=== PATIENT | female | born 1955 | race Caucasian/White ===

== ENCOUNTER 2016-03-15 13:26 | Emergency (ER) | payer OTHER ==
[~2016-03-15] VITALS: Ht 165.1 cm; Wt 62.6 kg
[~2016-03-15 13:26] MED LIST: BACL10TA PO; GABA-532 PO; IBUP-1482 PO; LIDOCAINE OINTMENT; PREG75CA PO; VOLTAREN 1%
[2016-03-15 13:58] VITALS: BP 123/101
== END 2016-03-15 16:12 | disposition home or self-care (01) ==
LOC: ER 13:29
DX: T81.4XXA Infection following a procedure, initial encounter (principal); Y92.89 Other specified places as the place of occurrence of the external cause; Y93.89 Activity, other specified; Y99.8 Other external cause status
CPT/HCPCS: 73610; 99284; A4606; Z7610

== ENCOUNTER 2019-07-18 04:30 | Inpatient (IN) | payer OTHER ==
[~2019-07-18] VITALS: Ht 167.6 cm; Wt 68.0 kg
[~2019-07-18 04:30] MED LIST changes: -IBUP-1482 PO; +IBUP-1958 PO
--- NOTE | 2019-07-18 04:40 | NUR ---
PT AAOX4. BIBRA C/O SOB SINCE THE MORNING. PT STATES SHE HAS SEASONAL ALLERGIES. SAT 91% RESTAURANT EXPEDITOR, GIVEN 2 TREATMENTS OF ALBUTEROL IN THE FIELD, SAT 96% NOW ON RA. PLACED ON MONITOR AND PULSE OX. BILATERAL WHEEZING UPON AUSCULTATION.
--- NOTE | 2019-07-18 04:45 | NUR ---
RT AT BEDSIDE FOR ABG
--- NOTE | 2019-07-18 04:49 | NUR ---
XRAY AT BEDSIDE
[2019-07-18 05:04] LABS: ABG BASE EXCESS -5.6 mmol/L; ABG OXYGEN SATURATION 91.1 % (92.0-98.5); ABG PCO2 38.9 mmHg (35.0-45.0); ABG PH 7.326 (7.350-7.450); ABG PO2 70.6 mmHg (75.0-100.0); AaDO2 32.5 mmHg; COHb 0.3 % (0.5-1.5); MetHb 0.6 % (0.0-1.5); O2Hb 90.3 % (94.0-97.0); SITE, ABG Left Radial; VENT MODE, BG ROOM AIR
[2019-07-18] MEDS ORDERED: FUROSEMIDE 20 MG/2 ML VIAL ONE (05:24)
[2019-07-18] MEDS ORDERED: FUROSEMIDE 20 MG/2 ML VIAL IV ONE (05:30)
[2019-07-18] MEDS ORDERED: ALBUTEROL FS 2.5 MG/3 ML VIAL.NEB NEB ONE ×3 (05:30→09:00)
[2019-07-18] MEDS ORDERED: IPRATROPIUM NEB FS 0.5 MG/2.5 ML AMPUL.NEB NEB ONE ×2 (05:30→07:30)
--- NOTE | 2019-07-18 05:32 | NUR ---
BLOOD COLLECTED AND SENT WITH RESIDENT SERVICES DIRECTOR.
--- NOTE | 2019-07-18 05:34 | NUR ---
Marcella butcher in ED - 07/18/19 at 0605 by EDMOND PT VERY ANXIOUS, REFUSING THE BREATHING TREATMENT.
--- NOTE | 2019-07-18 05:36 | NUR ---
RT AT BEDSIDE FOR BREATHING TREATMENT
[2019-07-18 05:37] LABS: BASOPHILS % (AUTO) 0.4 % (0.0-2.0); EOSINOPHILS % (AUTO) 10.2 % (0.0-6.0); HEMATOCRIT 29 % (33-45); HEMOGLOBIN 8.9 g/dL (11.5-14.8); LYMPHOCYTES # (AUTO) 0.7 /CMM (0.8-4.8); MEAN CORPUSCULAR HGB CONC 31 g/dl (31.0-36.0); MEAN CORPUSCULAR VOLUME 76 fL (82-100); MONOCYTES # (AUTO) 0.8 /CMM (0.1-1.30); MONOCYTES % (AUTO) 7.1 % (2.0-12.0); NEUTROPHILS # (AUTO) 8.4 /CMM (1.8-8.9); NEUTROPHILS % (AUTO) 76.3 % (43.0-81.0); PLATELET COUNT (AUTO) 313 /CMM (150-450); RED BLOOD CELL COUNT(AUTO) 3.83 MIL/uL (4.0-5.2)
[2019-07-18] MEDS ORDERED: ALBUTEROL FS 2.5 MG/3 ML VIAL.NEB ONE ×3 (05:40→08:49)
[2019-07-18] MEDS ORDERED: IPRATROPIUM NEB FS 0.5 MG/2.5 ML AMPUL.NEB ONE (05:40)
[2019-07-18 05:44] LABS: CALCIUM, SERUM 8.6 mg/dL (8.5-10.1); CREATININE 0.9 mg/dL (0.6-1.3); POTASSIUM 3.4 mmol/L (3.5-5.1)
--- NOTE | 2019-07-18 05:44 | NUR ---
DR. ROSARIO ON THE PHONE WITH JOSH RAWLS DNP
--- NOTE | 2019-07-18 05:45 | NUR ---
PT REFUSING BREATHING TREATMENT, VERY ANXIOUS.
--- NOTE | 2019-07-18 05:50 | NUR ---
CALLED NURSING SUP FOR BED
[2019-07-18] MEDS ORDERED: ASPIRIN 325 MG TABLET ONE (05:56)
[2019-07-18 05:57] LABS: ALBUMIN 3.4 g/dL (3.4-5.0); BILIRUBIN,TOTAL 0.2 mg/dL (0.2-1.0); TOTAL PROTEIN, SERUM 7.3 g/dL (6.4-8.2)
--- NOTE | 2019-07-18 06:06 | NUR ---
PT USING BREATHING TREATMENT ON AND OFF. COVID SWAB SENT TO LAB.
[2019-07-18] MEDS ORDERED: LORAZEPAM INJ 2 MG/ML VIAL ONE (06:15)
--- NOTE | 2019-07-18 06:17 | NUR ---
Marcella butcher in ED - 07/18/19 at 0725 by GEORGE NOTED LABORED BREATHING WITH USE OF ACCESSORY MUSCLES. DR. GOODSON AT BEDSIDE.
--- NOTE | 2019-07-18 06:19 | NUR ---
Marcella butcher in [facility] - 07/18/19 at 0725 by GEORGE PER VERBAL MD ORDER, WILL START NITROGLYCERIN IV DRIP PER PROTOCOL NOW
--- NOTE | 2019-07-18 06:25 | NUR ---
Marcella butcher in ED - 07/18/19 at 0725 by GEORGE EMMA SCOTT CANCELLED BY
--- NOTE | 2019-07-18 06:27 | NUR ---
PT ON 2L NC SAT 99%
[2019-07-18] MEDS ORDERED: ONDANSETRON HCL/PF 4 MG/2 ML VIAL IVP PRN (06:30)
[2019-07-18] MEDS ORDERED: ACETAMINOPHEN 325 MG TABLET PO PRN (06:30)
[2019-07-18] MEDS ORDERED: MAG HYDROX/AL HYDROX/SIMETH 30 ML UDC PO PRN (06:30)
[2019-07-18] MEDS ORDERED: ASPIRIN 325 MG TABLET PO ONE (06:30)
[2019-07-18] MEDS ORDERED: MORPHINE SULFATE INJ 2 MG/ML DISP.SYRIN IV PRN (06:30)
[2019-07-18] MEDS ORDERED: MAGNESIUM HYDROXIDE 30 ML UDC PO PRN (06:30)
[2019-07-18] MEDS ORDERED: LORAZEPAM INJ 2 MG/ML VIAL IV ONE (06:30)
[2019-07-18] MEDS ORDERED: NITROGLYCERIN 0.4 MG/TAB BOTTLE SL PRN (06:30)
[2019-07-18] MEDS ORDERED: HYDROCODONE/APAP 5/325MG 1 EACH TABLET PO PRN (06:30)
--- NOTE | 2019-07-18 06:49 | NUR ---
NOTED PT WITH LABORED BREATHING, ACCESSORY MUSCLE USE, AUDIBLE WHEEZING. ER MD MADE AWARE WITH ORDERS RECEIVED. WILL CARRY OUT ORDERS.
[2019-07-18] MEDS ORDERED: NTG 50 MG/D5W250 ML BOTTL 250 ML IV ONE (06:51)
--- NOTE | 2019-07-18 06:52 | NUR ---
PER VERBAL MD ORDER, WILL START NITROGLYCERIN IV DRIP PER PROTOCOL NOW
--- NOTE | 2019-07-18 06:53 | NUR ---
Note hadley in EDM - 07/18/19 at 0725 by SHAKA NOTED PT WITH LABORED BREATHING, ACCESSORY MUSCLE USE, AUDIBLE WHEEZING. SNEHAL GODOY MADE AWARE WITH ORDERS RECEIVED. WILL CARRY OUT ORDERS.
--- NOTE | 2019-07-18 06:55 | NUR ---
NITRO DRIP CANCELLED BY
--- NOTE | 2019-07-18 06:57 | NUR ---
STARTED SL 18G TO RAC 18G.
--- NOTE | 2019-07-18 06:58 | NUR ---
SNEHAL GODOY BEDSIDE FOR CARDIAC DONALD.
[2019-07-18] MEDS ORDERED: Magnesium 1GM/D5W 100ML PREMIX 200 ML IV ONE ×2 (07:02→07:08)
[2019-07-18] MEDS ORDERED: methylPREDNISolone SOD SUCC 125 MG/2ML VIAL ONE (07:07)
--- NOTE | 2019-07-18 07:09 | NUR ---
RT AT BEDSIDE TO PLACE PT ON BIPAP.
--- NOTE | 2019-07-18 07:13 | NUR ---
PT MEDICATED ORDERED BY ER .
--- NOTE | 2019-07-18 07:24 | NUR ---
REPORT GIVEN TO AM SHIFT RN AXLE FOR CONTINUITY OF CARE.
--- NOTE | 2019-07-18 07:27 | NUR ---
RECEIVED REPORT FROM AMY MORA FOR GEOFFREY, PT IS AAOX3, ON BIPAP, HOOKED TO MACHINE SPLITTER, KEPT RESTED AND COMFORTABLE, BROWN CATH INSERTED, WILL CONTINUE TO MONITOR.
[2019-07-18] MEDS ORDERED: PANTOPRAZOLE 40 MG TABLET.DR PO SCH (07:30)
[2019-07-18] MEDS ORDERED: methylPREDNISolone SOD SUCC 125 MG/2ML VIAL IV ONE (07:30)
--- NOTE | 2019-07-18 07:35 | NUR ---
PT BIPAP SETTINGS: 25/07,02:40%,RATE:12.
--- NOTE | 2019-07-18 07:48 | NUR ---
AT BEDSIDE FOR EVAL.
[2019-07-18] MEDS ORDERED: GABAPENTIN 100 MG CAPSULE PO PRN (08:00)
[2019-07-18] MEDS ORDERED: POTASSIUM CHLORIDE 20 MEQ TAB.PRT.SR PO SCH ×2 (08:00→12:00)
[2019-07-18 08:09] LABS: C-REACTIVE PROTEIN 2.8 mg/dL (0.0-0.9)
--- NOTE | 2019-07-18 08:44 | NUR ---
RT AT BEDSIDE FOR BREATHING TREATMENT.
[2019-07-18 08:47] LABS: MAGNESIUM 2.2 mg/dL (1.8-2.4); PHOSPHORUS 4.6 mg/dL (2.5-4.9)
[2019-07-18] MEDS ORDERED: ENOXAPARIN SODIUM 40 MG/0.4 ML DISP.SYRIN SQ SCH (09:00)
--- NOTE | 2019-07-18 09:00 | NUR ---
ER PHLEB AT BEDSIDE FOR BLOOD DRAW.
--- NOTE | 2019-07-18 09:44 | NUR ---
rt called to try and wean her off bipap per order
--- NOTE | 2019-07-18 09:50 | NUR ---
RT AT BEDSIDE FOR BIPAP WEANING.
--- NOTE | 2019-07-18 10:00 | NUR ---
ROOM GIVEN 116-2
[2019-07-18 10:05] LABS: THYROID STIMULATING HORMONE 2.087 uIU/mL (0.358-3.74)
--- NOTE | 2019-07-18 10:10 | NUR ---
REPORT GIVEN TO AMY THOMAS FOR GEOFFREY, PT V/S STABLE.
--- NOTE | 2019-07-18 10:25 | NUR ---
SPOKED TO PT'S BROTHER PETE [phone]
--- NOTE | 2019-07-18 10:51 | NUR ---
TELE/RN NOTE THE PATIENT IS RECEIVED FROM ER ON A GURNEY. TRANSFERRED THE PATIENT TO BED. PATIENT IS ALERT AND ORIENTED X1. NOTED TO BE DROWSY. RECEIVING OXYGEN AT 3L/MIN VIA NASAL CANNULA AND DENIES SOB. RESPIRATION REGULAR AND UNLABORED. DENIES PAIN. THE PATIENT IN NO APPARENT DISTRESS. RAC G 18 AND LAC G 20 BOTH PATENT AND SALINE LOCKED PLACED EXTERNAL TELE BOX AND NOTED READING OS ST 70. THE PATIENT HAS BROWN CATH WHICH IS DRAINING CLEAR, YELLOW COLOR URINE. NO BLADDER DISTENSION NOTED. BED LOW AND LOCKED. SIDE RAILS UP X3. CALL LIGHT WITHIN REACH. WILL CONTINUE TO MONITOR.
[2019-07-18] MEDS: LEVOFLOXACIN (500MG) 500 MG TABLET PO SCH (11:55)
[2019-07-18] MEDS: PREGABALIN 25 MG CAPSULE PO SCH ×2 (11:55→17:09)
[2019-07-18] MEDS: PANTOPRAZOLE 40 MG TABLET.DR PO SCH (11:56)
[2019-07-18] MEDS: ATORVASTATIN 10 MG TABLET PO SCH (11:56)
[2019-07-18] MEDS: ENOXAPARIN SODIUM 80 MG/0.8 ML DISP.SYRIN SQ SCH (11:58)
[2019-07-18] MEDS: IPRATROPIUM/ALBUTEROL INHALER IH SCH ×2 (12:00→17:10)
[2019-07-18] MEDS: methylPREDNISolone SOD SUCC 40 MG/ML VIAL IV SCH ×2 (12:23→23:59)
--- NOTE | 2019-07-18 12:23 | NUR ---
TELE/RN NOTE PER ANA FROM PHARMACY THE PATIENT DID NOT RECEIVE K DUR SCHEDULED AT 0800 AND ASKED ME TO GIVE KDUR 40 MEQ ORDERED AT 1200. THE MEDICATION GIVEN.
--- NOTE | 2019-07-18 13:55 | NUR ---
TELE/RN NOTE RECEIVED CALL FROM VINCE (LAB) INFORMING THAT THE PATIENT IS POSITIVE FOR COVID 19 (SPECIMEN OF 07/17/19). DR BAH AWARE.
[2019-07-18 16:00] VITALS: BP_SYST 122; BP_SYST 143; BP_DIAS 76; BP_DIAS 79
[2019-07-18] MEDS: BACLOFEN (10 MG) 10 MG TABLET PO SCH (17:09)
--- NOTE | 2019-07-18 18:42 | NUR ---
TELE/RN NOTE THE PATIENT IS ALERT AND ORIENTED X3 WITH EPISODES OF FORGETFULNESS. PATIENT IS FULLY AWAKE. RECEIVING OXYGEN AT 3L/MIN VIA NASAL CANNULA AND SATURATION IS AT 95%. DENIES SOB. RESPIRATION REGULAR AND UNLABORED. DENIES PAIN. THE PATIENT IN NO APPARENT DISTRESS. RAC G 18 AND LAC G 20 BOTH ARE PATENT AND SALINE LOCKED.BROWN CATH DRAINING CLEAR, YELLOW COLOR URINE WITH NO FOUL ODOR. NO BLADDER DISTENSION NOTED. EXTERNAL TELE BOX READING IS SR 90. BED LOW AND LOCKED. SIDE RAILS UP X3. CALL LIGHT WITHIN REACH. WILL ENDORSE TO PRINT SUPPORT SPECIALIST.
[2019-07-18 20:00] VITALS: BP 113/71
[2019-07-19] VITALS: BP 94/50
[2019-07-19] MEDS: ENOXAPARIN SODIUM 80 MG/0.8 ML DISP.SYRIN SQ SCH ×2 (00:01→08:22)
[2019-07-19] MEDS: TEMAZEPAM 15 MG CAPSULE PO PRN (00:06)
[2019-07-19] MEDS: IPRATROPIUM/ALBUTEROL INHALER IH SCH ×4 (00:27→17:54)
[2019-07-19 04:00] VITALS: BP 109/97
[2019-07-19] MEDS: methylPREDNISolone SOD SUCC 40 MG/ML VIAL IV SCH ×3 (05:34→20:26)
[2019-07-19 07:16] LABS: BASOPHILS % (AUTO) 0.1 % (0.0-2.0); EOSINOPHILS % (AUTO) 0.1 % (0.0-6.0); HEMATOCRIT 28 % (33-45); HEMOGLOBIN 8.8 g/dL (11.5-14.8); LYMPHOCYTES # (AUTO) 0.5 /CMM (0.8-4.8); LYMPHOCYTES % (AUTO) 3.7 % (20.0-44.0); MEAN CORPUSCULAR HGB CONC 31 g/dl (31.0-36.0); MEAN CORPUSCULAR VOLUME 75 fL (82-100); MONOCYTES # (AUTO) 0.5 /CMM (0.1-1.30); MONOCYTES % (AUTO) 3.9 % (2.0-12.0); NEUTROPHILS # (AUTO) 12.5 /CMM (1.8-8.9); NEUTROPHILS % (AUTO) 92.2 % (43.0-81.0); PLATELET COUNT (AUTO) 320 /CMM (150-450); RED BLOOD CELL COUNT(AUTO) 3.77 MIL/uL (4.0-5.2); WHITE BLOOD COUNT (AUTO) 13.5 K/uL (4.3-11.0)
[2019-07-19 07:37] LABS: BILIRUBIN,TOTAL 0.1 mg/dL (0.2-1.0); CALCIUM, SERUM 8.7 mg/dL (8.5-10.1); MAGNESIUM 2.5 mg/dL (1.8-2.4); PHOSPHORUS 2.7 mg/dL (2.5-4.9); POTASSIUM 4.5 mmol/L (3.5-5.1); TOTAL PROTEIN, SERUM 6.8 g/dL (6.4-8.2)
--- NOTE | 2019-07-19 07:51 | NUR ---
CONSTRUCTION COORDINATOR OPENING NOTES RECEIVED PATIENT IN BED, ASLEEP. PATIENT ON OXYGEN THERAPY AT 3 LPM; BREATHING IS EVEN AND UNLABORED. NO SIGNS OF PAIN SUCH FACIAL GRIMACING, GUARDING OR MOANING. EXTERNAL MONITOR WITH A READING OF SINUS HAMZAH 59. RAC # 18 AND LAC # 20 SL PRESENT AND INTACT. SAFETY PRECAUTIONS IN PLACE; BED IN LOW POSITION AND LOCKED, RAILS UP X2, CALL LIGHT WITHIN REACH. WILL CONTINUE TO MONITOR PATIENT.
[2019-07-19] MEDS: PREGABALIN 25 MG CAPSULE PO SCH ×2 (08:20→17:04)
[2019-07-19] MEDS: ATORVASTATIN 10 MG TABLET PO SCH (08:21)
[2019-07-19] MEDS: BACLOFEN (10 MG) 10 MG TABLET PO SCH ×2 (08:21→17:04)
[2019-07-19] MEDS: ASPIRIN 81 MG TAB.CHEW PO SCH (08:21)
[2019-07-19] MEDS: PANTOPRAZOLE 40 MG TABLET.DR PO SCH (08:21)
[2019-07-19 09:20] VITALS: BP 122/71
[2019-07-19] MEDS: LEVOFLOXACIN (500MG) 500 MG TABLET PO SCH (10:23)
--- NOTE | 2019-07-19 16:00 | NUR ---
GLOBAL PROFESSIONAL NOTES RECEIVED A CALL FROM THE LAB WITH A NEGATIVE RESULT FOR COVID-19 FOR THE PATIENT. CHARGE NURSE AND MD NOTIFIED.
--- NOTE | 2019-07-19 16:05 | NUR ---
TAWER NOTES PATIENT COMPLAINING OF BACK PAIN AND ASKING FOR PAIN MEDICATION. PRN TYLENOL ADMINISTERED. WILL CONTINUE MONITORING PATIENT.
--- NOTE | 2019-07-19 18:44 | NUR ---
EXPORT PACKER CLOSING NOTES PATIENT STILL IN BED, AWAKE, WATCHING TV, A/O X4. PATIENT ON OXYGEN THERAPY AT 3 LPM; BREATHING IS EVEN AND UNLABORED. OCCASIONAL BACK PAIN TREATED WITH PRN MEDIATIONS. EXTERNAL MONITOR WITH A READING OF NORMAL SR OF 75. RAC # 18 AND LAC # 20 SL PRESENT AND INTACT; FLUSHING WELL. ALL NEEDS ATTENDED TO THROUGHOUT THE DAY. SAFETY PRECAUTIONS IN PLACE; BED IN LOW POSITION AND LOCKED, RAILS UP X2, CALL LIGHT WITHIN REACH. WILL ENDORSE TO DENTAL SECRETARY NURSE.
--- NOTE | 2019-07-19 19:30 | NUR ---
PROJECT ADMIN OPENING NOTE RECEIVED PATIENT IN BED. A/OX4 ON OXYGEN 3L/MIN VIA NASAL CANNULA. RESPIRATIONS ARE EVEN AND UNLABORED. NO S/S SOB NOTED. STATES HER PAIN IS A 7/10 WILL ADMINISTER PAIN MEDICATIONS. EXTERNAL TELE MONITOR READS SINUS RHYTHM HR 76. IN NO APPARENT DISTRESS. IV ACCESS IN RAC#18 PATENT AND SALINE LOCKED WELL LAC#20 PATENT AND SALINE LOCKED. BROWN CATHETER IS PRESENT, DRAINING TO GRAVITY, URINE IS YELLOW. BED IS LOW AND LOCKED, HOB ELEVATED IN SEMI FOWLERS, SIDE RAILS UP X2, CALL LIGHT WITHIN REACH. WILL CONTINUE TO MONITOR.
[2019-07-19 20:00] VITALS: BP 120/82
--- NOTE | 2019-07-19 21:52 | NUR ---
UTILIZATION MANAGEMENT MANAGER NOTE PATIENT DID NOT WANT PAIN MEDICATION BUT DOES STILL HAVE BACK DISCOMFORT. ALSO EXPLAINED LEG NUMBNESS/TINGLING AND YOU LIKE HER NEURONTIN. ADMINISTERED PRN GABAPENTIN 200MG D/T PATIENT REQUEST. WILL CONTINUE TO MONITOR.
[2019-07-20] VITALS: BP 147/84
[2019-07-20] MEDS: IPRATROPIUM/ALBUTEROL INHALER IH SCH ×5 (00:18→23:54)
[2019-07-20] MEDS: TEMAZEPAM 15 MG CAPSULE PO PRN (00:20)
--- NOTE | 2019-07-20 00:20 | NUR ---
CAP SEWER NOTE ADMINISTERED PRN RESTORIL 15MG PER PATIENT REQUEST FOR SLEEP WILL CONTINUE TO MONITOR.
[2019-07-20 04:00] VITALS: BP 136/93
[2019-07-20] MEDS: methylPREDNISolone SOD SUCC 40 MG/ML VIAL IV SCH ×3 (06:03→20:49)
--- NOTE | 2019-07-20 06:55 | NUR ---
HUMANITIES AND LANGUAGES PROFESSOR OPENING NOTE PATIENT IN BED. A/OX4 ON OXYGEN 3L/MIN VIA NASAL CANNULA. RESPIRATIONS ARE EVEN AND UNLABORED. NO SOB NOTED. EXTERNAL TELE MONITOR READS SINUS RHYTHM HR 76. NO DISTRESS NOTED. IV ACCESS MAINTAINED IN RAC#18 PATENT AND SALINE LOCKED WELL LAC#20 PATENT AND SALINE LOCKED. BROWN CATHETER IS MAINTAINED, DRAINING TO GRAVITY, URINE IS YELLOW OUTPUT 1400ML. BED IS LOW AND LOCKED, HOB ELEVATED IN SEMI FOWLERS, SIDE RAILS UP X2, CALL LIGHT WITHIN REACH. WILL ENDORSE TO NEXT SHIFT.
[2019-07-20 08:00] VITALS: BP 144/90
[2019-07-20] MEDS: ATORVASTATIN 10 MG TABLET PO SCH (08:26)
[2019-07-20] MEDS: BACLOFEN (10 MG) 10 MG TABLET PO SCH ×2 (08:26→16:42)
[2019-07-20] MEDS: ASPIRIN 81 MG TAB.CHEW PO SCH (08:26)
[2019-07-20] MEDS: PREGABALIN 25 MG CAPSULE PO SCH ×2 (08:27→16:43)
[2019-07-20] MEDS: PANTOPRAZOLE 40 MG TABLET.DR PO SCH (08:27)
[2019-07-20] MEDS: LEVOFLOXACIN (500MG) 500 MG TABLET PO SCH (11:14)
--- NOTE | 2019-07-20 11:30 | NUR ---
MS RN OPENING NOTES RECEIVED PATIENT FROM [facility], IN BED, AWAKE, CONSCIOUS, COOPERATIVE, 02 VIA NC AT 3LPM, NO SIGNS OF RESPIRATORY DISTRESS, RAC #18 SALINE LOCK, LAC #20 SL, WITH BROWN CATH ATTACHED, WITH YELLOWISH COLOR URINE, SIDE RAILS UP FOR SAFETY. VITAL SIGNS BP: 140/90, HR: 71, RR: 18, TEMP: 98.2, 98% O2 SAT.
--- NOTE | 2019-07-20 15:08 | NUR ---
MS RN NOTES COMBIVENT RESPIMAT INHALER DONE BY PATIENT ITSELF. CALLED [facility] NURSE ASSIGNED, SHE SAID THEY DON'T HAVE IT.
--- NOTE | 2019-07-20 18:50 | NUR ---
MS RN CLOSING NOTES ENDORSED PATIENT TO SOLE INKER NURSE, IN BED, AWAKE, CONSCIOUS, COOPERATIVE, O2 AT 3LPM VIA NASAL CANNULA, NO SIGNS OF RESPIRATORY DISTRESS, RAC #18 SL, LAC #20 SL, NO SIGNS OF REDNESS OR INFILTRATION, BROWN CATH ATTACHED WITH YELLOWISH COLORED URINE, SIDE RAILS UP FOR SAFETY.
--- NOTE | 2019-07-20 19:30 | NUR ---
MS RN NOTES RECEIVED ON BED A/O X4,VERBALIZED NEEDS,BREATHING REGULAR,NOT IN ANY FORM OF DISTRESS.SALINE LOCK RIGHT AND LEFT AC INTACT AND PATENT.NS FLUSHING DONE.CALL LIGHT IN REACH,NEEDS ANTICIPATED.
[2019-07-20 20:00] VITALS: BP 135/78
[2019-07-20] MEDS ORDERED: ENOXAPARIN SODIUM 40 MG/0.4 ML DISP.SYRIN SQ SCH (21:00)
--- NOTE | 2019-07-20 21:00 | NUR ---
MS RN NOTES NOTED ON AND OFF DRY COUGH,WITH INHALER DUE Q 6 HOURS,DUE AT MIDNIGHT
[2019-07-20 22:00] VITALS: BP 135/78
[2019-07-21] MEDS: methylPREDNISolone SOD SUCC 40 MG/ML VIAL IV SCH ×2 (05:20→12:36)
[2019-07-21] MEDS: IPRATROPIUM/ALBUTEROL INHALER IH SCH ×3 (05:20→17:39)
--- NOTE | 2019-07-21 06:14 | NUR ---
MS RN NOTES SLEPT WITH INTERVALS,NO SOB,DENIES CHEST PAIN,SALINE LOCK REMAINS PATENT ON RIGHT AC.ALL DUE MEDS GIVEN ORDERED.INR REMAINS ELEVATED.IN NO ACUTE DISTRESS.WILL ENDORSE TO ANNETTE REYES FOR CONTINUITY OF CARE
--- NOTE | 2019-07-21 07:30 | NUR ---
MS REYES OPENING NOTES RECEIVED PT IN BED, AWAKE, A/OX4. TOLERATING RA, WITH NO ACUTE RESPIRATORY DISTRESS NOTED. PT DENIES ANY PAIN OR DISCOMFORT AT THIS TIME. PT CONCERNED ABOUT GOING HOME TODAY AND WANTED TO SPEAK TO /JORGE. PIV TO RAC G18, FLUSHED WITH NS, INTACT AND OPERATIONAL. PT SCHEDULED FOR DUPLEX VENOUS DOPPLER TO LOVER EXT TO R/O DVT, PT AWARE WELL. PT KEPT COMFORTABLE IN BED. CALL LIGHT KEPT WITHIN REACH. PT'S BED IN LOWEST, LOCKED POSITION WITH SR X3. WILL CONTINUE PLAN OF CARE. Addendum: 07/21/19 at 0825 by JANELLE BARRERA RN PT NOT IN RA. RECEIVED PT ON SUPPLEMENTARY OXYGEN AT 2LPMM VIA NC. WILL CONTINUE TO MONITOR.
[2019-07-21 08:00] VITALS: BP 146/98
[2019-07-21] MEDS: PREGABALIN 25 MG CAPSULE PO SCH ×2 (08:57→16:25)
[2019-07-21] MEDS: ATORVASTATIN 10 MG TABLET PO SCH (08:57)
[2019-07-21] MEDS: ASPIRIN 81 MG TAB.CHEW PO SCH (08:57)
[2019-07-21] MEDS: BACLOFEN (10 MG) 10 MG TABLET PO SCH ×2 (08:57→16:25)
[2019-07-21] MEDS: PANTOPRAZOLE 40 MG TABLET.DR PO SCH (08:57)
--- NOTE | 2019-07-21 09:57 | NUR ---
MS RN NOTES RECEIVED RESULT FOR VENOUS DOPPLER, PT POSITIVE DVT AT RIGHT FEMORAL VEIN AND NOTHING TO LLE. HOSPITALIST//JORGE MADE AWARE. AWAITING FOR ORDERS. WILL CONTINUE TO MONITOR.
--- NOTE | 2019-07-21 10:35 | NUR ---
MS RN NOTES WA SIGNED CONSENT FORCT PULMONARY ANGIOGRAM AND CONTRAST. WILLC ONTINUE TO MONITOR.
[2019-07-21] MEDS: LEVOFLOXACIN (500MG) 500 MG TABLET PO SCH (10:36)
[2019-07-21 10:50] LABS: BASOPHILS % (AUTO) 0.1 % (0.0-2.0); HEMATOCRIT 30 % (33-45); HEMOGLOBIN 9.2 g/dL (11.5-14.8); LYMPHOCYTES # (AUTO) 0.3 /CMM (0.8-4.8); LYMPHOCYTES % (AUTO) 3.6 % (20.0-44.0); MEAN CORPUSCULAR HGB CONC 31 g/dl (31.0-36.0); MEAN CORPUSCULAR VOLUME 76 fL (82-100); MONOCYTES # (AUTO) 0.3 /CMM (0.1-1.30); MONOCYTES % (AUTO) 3.9 % (2.0-12.0); NEUTROPHILS # (AUTO) 6.8 /CMM (1.8-8.9); NEUTROPHILS % (AUTO) 92.4 % (43.0-81.0); PLATELET COUNT (AUTO) 347 /CMM (150-450); RED BLOOD CELL COUNT(AUTO) 3.96 MIL/uL (4.0-5.2); WHITE BLOOD COUNT (AUTO) 7.3 K/uL (4.3-11.0)
[2019-07-21] MEDS: APIXABAN 5 MG TABLET PO SCH ×2 (11:05→21:09)
--- NOTE | 2019-07-21 11:08 | NUR ---
MS RN NOTES RAC G18, FLUSHED WITH NS, INTACT AND OPERATIONAL. PT READY FOR CT PULMONARY ANGIOGRAM. WILL CONTINUE TO MONITOR.
[2019-07-21 11:17] LABS: CALCIUM, SERUM 8.5 mg/dL (8.5-10.1); CREATININE 1.3 mg/dL (0.6-1.3); POTASSIUM 3.9 mmol/L (3.5-5.1)
--- NOTE | 2019-07-21 12:15 | NUR ---
MS RN NOTES PT WHEELED DOWN TO DO CT PULMONARY ANGIOGRAM. WILL CONTINUE TO MONITOR.
[2019-07-21] MEDS ORDERED: IV NS 0.9% 250 ML IV ONE (12:16)
[2019-07-21] MEDS ORDERED: CT SWABBABLE VALVE TRANS SET 1 EA INFUS.SET MC ONE (12:16)
[2019-07-21] MEDS ORDERED: IOHEXOL-350 100 ML VIAL IV ONE (12:16)
[2019-07-21 16:00] VITALS: BP 153/89
--- NOTE | 2019-07-21 16:00 | NUR ---
MS RN NOTES CT PULMONARY ANGIOGRAM RESULTED. INFORMED MD/KR, NO NEW ORDERS NOTED. WILL CONTINUE TO MONITOR.
--- NOTE | 2019-07-21 18:30 | NUR ---
MS RN CLOSING NOTES PT REMAINS IN BED, AWAKE, A/OX4. TOLERATING RA, WITH NO ACUTE RESPIRATORY DISTRESS NOTED. PT DENIES ANY PAIN OR DISCOMFORT AT THIS TIME. PIV TO RAC G18, FLUSHED WITH NS, INTACT AND OPERATIONAL. PT KEPT COMFORTABLE IN BED. FC IN PLACE WITH YELLOW URINE N THE BAG WITH 700ML OUTPUT ALL NEEDS AND CARE ATTENDED NE PROVIDED. CALL LIGHT KEPT WITHIN REACH. PT'S BED IN LOWEST, LOCKED POSITION WITH SR X3. WILL ENDORSE TO INCOMING NIGHT NURSE FOR GEOFFREY.
[2019-07-21 20:00] VITALS: BP 134/75
[2019-07-22] MEDS: IPRATROPIUM/ALBUTEROL INHALER IH SCH ×4 (06:00→17:17)
[2019-07-22 06:21] LABS: BASOPHILS % (AUTO) 0.2 % (0.0-2.0); HEMATOCRIT 27 % (33-45); HEMOGLOBIN 8.6 g/dL (11.5-14.8); LYMPHOCYTES # (AUTO) 1.3 /CMM (0.8-4.8); LYMPHOCYTES % (AUTO) 21.4 % (20.0-44.0); MEAN CORPUSCULAR HGB CONC 32 g/dl (31.0-36.0); MEAN CORPUSCULAR VOLUME 74 fL (82-100); MONOCYTES # (AUTO) 0.9 /CMM (0.1-1.30); MONOCYTES % (AUTO) 13.8 % (2.0-12.0); NEUTROPHILS # (AUTO) 4.1 /CMM (1.8-8.9); NEUTROPHILS % (AUTO) 64.6 % (43.0-81.0); PLATELET COUNT (AUTO) 302 /CMM (150-450); RED BLOOD CELL COUNT(AUTO) 3.62 MIL/uL (4.0-5.2); WHITE BLOOD COUNT (AUTO) 6.3 K/uL (4.3-11.0)
[2019-07-22 06:32] LABS: CALCIUM, SERUM 8.1 mg/dL (8.5-10.1); CREATININE 1.1 mg/dL (0.6-1.3); MAGNESIUM 2.4 mg/dL (1.8-2.4); POTASSIUM 4.1 mmol/L (3.5-5.1)
--- NOTE | 2019-07-22 06:35 | NUR ---
MS RN NOTES AWAKE & RESPONSIVE. NOT IN ANY DISTRESS. NO SOB NOTED. DENIES ANY PAIN OR DISCOMFORT AT THIS TIME. WITH IV-HL PATENT & INTACT. MONITORED ACCORDINGLY. CALL LIGHT WITHIN REACH. BED IN LOWEST POSITION. SR UP X 2 FOR SAFETY. WILL ENDORSE TO NEXT SHIFT.
--- NOTE | 2019-07-22 07:26 | NUR ---
MS/MS Opening note Patient received from attendance secretary. A/O X4, vital signs stable, no fevers noted. Heplock to right AC flushing well with normal saline, no signs of infiltration. Denies pain or discomfort. Call light within reach, bed in low setting, side rails X3 in upright position. Will continue to monitor and ensure safety.
[2019-07-22 08:00] VITALS: BP 160/87
--- NOTE | 2019-07-22 08:30 | NUR ---
MS/RN S/B Dr Mendes Seen by Dr Mendes - for possible discharge once cleared by Dr Bryan. made aware of elevated blood pressure, awaiting orders.
[2019-07-22] MEDS: BACLOFEN (10 MG) 10 MG TABLET PO SCH ×2 (08:32→17:08)
[2019-07-22] MEDS: methylPREDNISolone SOD SUCC 40 MG/ML VIAL IV SCH (08:32)
[2019-07-22] MEDS: PREGABALIN 25 MG CAPSULE PO SCH ×2 (08:32→17:08)
[2019-07-22] MEDS: ATORVASTATIN 10 MG TABLET PO SCH (08:33)
[2019-07-22] MEDS: ASPIRIN 81 MG TAB.CHEW PO SCH (08:33)
[2019-07-22] MEDS: PANTOPRAZOLE 40 MG TABLET.DR PO SCH (08:33)
[2019-07-22] MEDS: APIXABAN 5 MG TABLET PO SCH (08:41)
[2019-07-22 08:59] LABS: ABG BASE EXCESS 1.5 mmol/L; ABG OXYGEN SATURATION 93.1 % (92.0-98.5); ABG PCO2 40.4 mmHg (35.0-45.0); ABG PH 7.426 (7.350-7.450); ABG PO2 70.2 mmHg (75.0-100.0); AaDO2 31.2 mmHg; COHb 0.3 % (0.5-1.5); O2Hb 92.8 % (94.0-97.0); SITE, ABG Right Radial; VENT MODE, BG room air
--- NOTE | 2019-07-22 09:12 | NUR ---
RT NOTE ABG RESULTS RELAYED TO AMY HELTON. Addendum: 07/22/19 at 0912 by RUBIN HESTER RT LATE ENTRY @ 09
--- NOTE | 2019-07-22 09:49 | NUR ---
MS/RN Consent Consent signed for CT angiogram of heart. New heplock inserted in left AC 18g.
[2019-07-22] MEDS ORDERED: IOHEXOL-350 100 ML VIAL IV ONE ×2 (10:04→10:58)
[2019-07-22] MEDS ORDERED: IV NS 0.9% 250 ML IV ONE (10:04)
[2019-07-22] MEDS ORDERED: METOPROLOL TARTRATE INJ 5 MG/5 ML AMPUL ONE (10:09)
--- NOTE | 2019-07-22 10:15 | NUR ---
MS/RN CTCA Patient taken to CTCA via wheelchair. Medical chart with patient.
[2019-07-22] MEDS ORDERED: METOPROLOL TARTRATE INJ 5 MG/5 ML AMPUL IVP PRN (10:30)
[2019-07-22] MEDS ORDERED: METOPROLOL TARTRATE INJ 5 MG/5 ML AMPUL IVP ONE (10:30)
[2019-07-22] MEDS ORDERED: NITROGLYCERIN 0.4 MG/TAB BOTTLE SL ONE (10:30)
[2019-07-22] MEDS: LEVOFLOXACIN (500MG) 500 MG TABLET PO SCH (11:33)
--- NOTE | 2019-07-22 11:53 | NUR ---
MS/RN Back to room Patient back to room following CTCA, no results as of this time.
--- NOTE | 2019-07-22 15:26 | NUR ---
MS/RN CTCA results CTCA resulted as moderate to severe stenosis with calcium score of 437. Dr Bryan entered orders for patient to be NPO from midnight for cardiac cath tomorrow.
[2019-07-22 16:00] VITALS: BP 153/79
--- NOTE | 2019-07-22 18:35 | NUR ---
MS/RN End note Patient remains in stable condition. To be NPO from midnight for cardiac cath tomorrow, will sign consent forms once she has spoken to the doctors about the procedure. Denies pain or discomfort, all questions and concerns addressed, will endorse to night time babysitter.
--- NOTE | 2019-07-22 19:30 | NUR ---
MS/TELE/RN PATIENT IS SLEEPING AT THIS TIME, APPEAR COMFORTABLE, NO SIGNS OF DISTRESS NOTED, CALL LIGHT IN REACH. WILL MONITOR.
[2019-07-22 20:00] VITALS: BP 121/84
--- NOTE | 2019-07-22 20:44 | NUR ---
MS/TELE/RN PATIENT IS NOW AWAKE, C/O OF SORENESS IN THE IV INSERTION SITE, REMOVED IV, INSERTED NEW IV AT RT. R/A G22.
[2019-07-23] VITALS (19 sets, daily range): BP systolic 98–149; BP diastolic 26–95
[2019-07-23] MEDS: IPRATROPIUM/ALBUTEROL INHALER IH SCH (01:04)
[2019-07-23 05:35] LABS: BASOPHILS % (AUTO) 0.6 % (0.0-2.0); EOSINOPHILS % (AUTO) 12.4 % (0.0-6.0); HEMATOCRIT 28 % (33-45); HEMOGLOBIN 8.7 g/dL (11.5-14.8); LYMPHOCYTES # (AUTO) 1.5 /CMM (0.8-4.8); LYMPHOCYTES % (AUTO) 26.5 % (20.0-44.0); MEAN CORPUSCULAR HGB CONC 31 g/dl (31.0-36.0); MEAN CORPUSCULAR VOLUME 74 fL (82-100); MONOCYTES # (AUTO) 0.5 /CMM (0.1-1.30); MONOCYTES % (AUTO) 9.3 % (2.0-12.0); NEUTROPHILS % (AUTO) 51.2 % (43.0-81.0); PLATELET COUNT (AUTO) 319 /CMM (150-450); RED BLOOD CELL COUNT(AUTO) 3.79 MIL/uL (4.0-5.2); WHITE BLOOD COUNT (AUTO) 5.8 K/uL (4.3-11.0)
[2019-07-23 05:52] LABS: CALCIUM, SERUM 8.7 mg/dL (8.5-10.1); CREATININE 1.2 mg/dL (0.6-1.3); EOSINOPHILS % (MANUAL) 8 % (0-4); LYMPHOCYTES % (MANUAL) 20 % (16-48); MAGNESIUM 2.2 mg/dL (1.8-2.4); MONOCYTES % (MANUAL) 10 % (0-11.0); NEUTROPHILS % (MANUAL) 62 (42-76); PHOSPHORUS 6.2 mg/dL (2.5-4.9); POTASSIUM 4.4 mmol/L (3.5-5.1)
[2019-07-23] MEDS ORDERED: IV SET PRIMARY PUMP SET 1 EA INFUS.SET MC ONE (05:58)
[2019-07-23] MEDS ORDERED: IV NS 0.9% 500 ML IV ONE (05:58)
[2019-07-23] MEDS ORDERED: VERAPAMIL HCL IV 5 MG/2 ML VIAL ONE (05:58)
[2019-07-23] MEDS ORDERED: HEPARIN SODIUM, PORCINE 1,000 UNIT/ML VIAL ONE ×2 (05:59→07:02)
[2019-07-23] MEDS ORDERED: LIDOCAINE HCL/PF 1% 30 ML SDV ONE (05:59)
[2019-07-23] MEDS ORDERED: NITROGLYCERIN ICAR 1,000 MCG/10 ML VIAL ICAR ONE (05:59)
[2019-07-23] MEDS ORDERED: IODIXANOL 150 ML IV ONE (06:00)
--- NOTE | 2019-07-23 06:04 | NUR ---
MS/TELE/RN PATIENT WAS PICKED UP BY THE SUPERVISOR PORCELAIN DEPARTMENT.
[2019-07-23] MEDS ORDERED: MIDAZOLAM HCL 2 MG/2ML VIAL ONE (07:05)
[2019-07-23] MEDS ORDERED: FENTANYL PF 100MCG/2ML AMPUL ONE (07:05)
[2019-07-23] MEDS ORDERED: IV NS 0.9% 50 ML IV ONE (07:24)
[2019-07-23] MEDS ORDERED: BIVALIRUDIN 250 MG/VIAL IV ONE (07:24)
--- NOTE | 2019-07-23 07:50 | NUR ---
RN OPENING NOTE Received report from maintenance supervisor 2nd shift RN. Patient is currently in cardiac laborer livestock.
--- NOTE | 2019-07-23 08:40 | NUR ---
RN/ICU-RECEIVED PT. FROM PATIENT CASE COORDINATOR. S/P DIAGNOSTIC LEFT HEART CATH. PT. IS AWAKE, ALERT, EXPRESSIVE OF NEEDS. BREATHING SPONTANEOUSLY TO ROOM AIR W/ SATS.-96%. EKG SB W/ HR-58/MIN. BP-140/87. W/ TR BAND IN PLACE VIA RIGHT RADIAL AREA. W/PALPABLE RADIAL PULSES, RIGHT HAND IS COOL. NO SWELLING , HEMATOMA, OR BLEEDING NOTED BUT W/ PURPLISH COLOR BRUISES NOTED PER PT. NOT SOMETHING NEW, BEEN THERE SINCE YESTERDAY POST BLOOD DRAW. ABLE TO MOVE FINGERS. RUE KEPT ELEVATED ON PILLOW. TR BAND INFLATED W/ 15 ML AIR PER REPORT. WILL START DEFLATING W/ 2-3 ML AIR 2 HRS. POST TR BAND INFLATION.
[2019-07-23] MEDS ORDERED: ATORVASTATIN 40 MG TABLET PO SCH (09:00)
--- NOTE | 2019-07-23 09:17 | NUR ---
RN NOTE Notified by shafting worker that patient has been transferred to ICU after cardiac cath. Patient belongings sent to ICU.
[2019-07-23] MEDS: ASPIRIN 81 MG TAB.CHEW PO SCH (09:26)
[2019-07-23] MEDS: BACLOFEN (10 MG) 10 MG TABLET PO SCH ×2 (09:27→16:30)
[2019-07-23] MEDS: PREGABALIN 25 MG CAPSULE PO SCH ×2 (09:27→16:30)
[2019-07-23] MEDS: PANTOPRAZOLE 40 MG TABLET.DR PO SCH (09:27)
--- NOTE | 2019-07-23 10:15 | NUR ---
RN/ICU- RIGHT TR BAND SITE REMAINS THE SAME, NO BLEEDING OR SWELLING NOTED. STARTED DEFLATING W/ 2 ML AIR PER PROTOCOL. WILL CONTINUE TO MONITOR PER PROTOCOL.
--- NOTE | 2019-07-23 10:46 | NUR ---
RN/ICU-JUST SPOKE TO JAMES SOMMERS REGARDING PT. DESIRE TO BE TRANSFERRED TO [facility] IN [place], SAME STATED THAT IT DEPENDS WHERE THE PT. INSURANCE WILL DIRECT PT. TRANSFER.
--- NOTE | 2019-07-23 11:00 | NUR ---
RN/ICU- SPOKE TO PT. REGARDING PROGRESS OF TRANSFER TO ANOTHER HOSPITAL FOR HIGHER LEVEL OF CARE FOR CABG. VERBALIZED UNDERSTANDING.
[2019-07-23] MEDS: LEVOFLOXACIN (500MG) 500 MG TABLET PO SCH (11:05)
--- NOTE | 2019-07-23 11:45 | NUR ---
RN/ICU- TR BAND DCD, NO BLEEDING , OR SWELLING NOTED, REMAINS BRUISED FROM BEFORE.
--- NOTE | 2019-07-23 12:00 | NUR ---
RN/ICU- ON CARDIAC DIET, TOLERATED WELL, ATE, 90% OF FOOD SERVED.
--- NOTE | 2019-07-23 15:26 | NUR ---
RN/ICU- NOW PT. IS A TELEMETRY STATUS, WAITING FOR BED.
--- NOTE | 2019-07-23 17:00 | NUR ---
RN/ICU- PT. WILL TRANSFER TO [facility], 0832 AT 6PM VIA AMBULANCE W/ HORTICULTURAL FARMER.
--- NOTE | 2019-07-23 17:10 | NUR ---
RN/ICU- PT. SAUMYA HUGHES, TEL. NO. [phone] MADE AWARE OF TRANSFER.
--- NOTE | 2019-07-23 17:15 | NUR ---
RN/ICU- REPORT GIVEN TO [facility] AMY LAUGHLIN AT PHONE NO. [phone]. ACCEPTING PHYSICIAN DR. HECTOR ARNETT.
--- NOTE | 2019-07-23 18:05 | NUR ---
RN/ICU- AMBULANCE HERE.
[2019-07-23] MEDS ORDERED: ENOXAPARIN SODIUM 80 MG/0.8 ML DISP.SYRIN SQ SCH (21:00)
== END 2019-07-23 18:57 | disposition short-term general hospital (02) | DRG 190 ==
LOC: ER 04:30 → TELE1 10:20 → TELE 07-20 12:49 → MED 07-20 13:12 → ICU 07-23 08:45
PROVIDERS: ADMIT Internal Medicine; ATTEND Internal Medicine
DX: I21.4 Non-ST elevation (NSTEMI) myocardial infarction (principal); J96.01 Acute respiratory failure with hypoxia; I50.31 Acute diastolic (congestive) heart failure; E87.2 Acidosis; I82.411 Acute embolism and thrombosis of right femoral vein; G62.9 Polyneuropathy, unspecified; D50.9 Iron deficiency anemia, unspecified; E11.9 Type 2 diabetes mellitus without complications; F17.210 Nicotine dependence, cigarettes, uncomplicated; I27.20 Pulmonary hypertension, unspecified; E87.6 Hypokalemia; M48.061 Spinal stenosis, lumbar region without neurogenic claudication; J44.1 Chronic obstructive pulmonary disease with (acute) exacerbation; I25.10 Atherosclerotic heart disease of native coronary artery without angina pectoris
CPT/HCPCS: 36415; 36600; 71045-TC; 75574; 80048-TC; 80053-TC; 80061-TC; 80076-TC; 82728-TC; 82803-TC; 83540-TC; 83615-TC; 83735-TC; 83880; 84100-TC; 84439-TC; 84443-TC; 84484-TC; 85025-TC; 85610-TC; 85730-TC; 86140-TC; 87081-TC; 93307-TC; 93452; 93970-TC; A4216; C1887; G0378; J1644; J1650; J1940; J2060; J2250; J2920; J2930; J3010; J3475; J3490; J7040; J7050; Q9967

== ENCOUNTER 2019-09-26 14:32 | Inpatient (IN) | payer OTHER ==
[~2019-09-26] VITALS: Ht 162.6 cm; Wt 56.9 kg
[2019-09-26 15:25] LABS: BASOPHILS # (AUTO) 0.1 /CMM (0.0-0.2); BASOPHILS % (AUTO) 1.2 % (0.0-2.0); HEMATOCRIT 29 % (33-45); HEMOGLOBIN 8.8 g/dL (11.5-14.8); LYMPHOCYTES # (AUTO) 1.2 /CMM (0.8-4.8); MEAN CORPUSCULAR HGB CONC 30 g/dl (31.0-36.0); MEAN CORPUSCULAR VOLUME 78 fL (82-100); MONOCYTES # (AUTO) 0.4 /CMM (0.1-1.30); MONOCYTES % (AUTO) 5.5 % (2.0-12.0); NEUTROPHILS % (AUTO) 45.9 % (43.0-81.0); PLATELET COUNT (AUTO) 385 /CMM (150-450); RED BLOOD CELL COUNT(AUTO) 3.75 MIL/uL (4.0-5.2); WHITE BLOOD COUNT (AUTO) 6.5 K/uL (4.3-11.0)
[2019-09-26 15:31] LABS: EOSINOPHILS % (AUTO) 29.4 % (0.0-6.0)
[2019-09-26 15:35] LABS: CALCIUM, SERUM 9.3 mg/dL (8.5-10.1); CARBON DIOXIDE 23 mmol/L (21-32); CHLORIDE 108 mmol/L (98-107); CREATININE 1.2 mg/dL (0.6-1.3); GLUCOSE 140 mg/dL (74-106); POTASSIUM 3.3 mmol/L (3.5-5.1); SODIUM SERUM 144 mmol/L (136-145); UREA NITROGEN, BLOOD 13 mg/dL (7-18)
[2019-09-26] MEDS ORDERED: ALBUTEROL FS 2.5 MG/3 ML VIAL.NEB ONE (15:49)
[2019-09-26] MEDS ORDERED: methylPREDNISolone SOD SUCC 125 MG/2ML VIAL IV ONE (16:00)
[2019-09-26] MEDS ORDERED: IPRATROPIUM NEB FS 0.5 MG/2.5 ML AMPUL.NEB NEB ONE (16:00)
[2019-09-26] MEDS ORDERED: ALBUTEROL FS 2.5 MG/3 ML VIAL.NEB NEB ONE (16:00)
[2019-09-26] MEDS ORDERED: methylPREDNISolone SOD SUCC 125 MG/2ML VIAL ONE (16:06)
--- NOTE | 2019-09-26 16:11 | NUR ---
COVID SWAB DONE AND SENT TO LAB
[2019-09-26 16:52] LABS: ALANINE AMINOTRANSFERASE 19 U/L (12-78); ALBUMIN 3.8 g/dL (3.4-5.0); ALKALINE PHOSPHATASE 114 U/L (46-116); ASPARTATE AMINOTRANSFERASE 14 U/L (15-37); BILIRUBIN,TOTAL 0.1 mg/dL (0.2-1.0); TOTAL PROTEIN, SERUM 7.2 g/dL (6.4-8.2)
[2019-09-26 17:12] LABS: B-TYPE NATRIURETIC PEPTIDE 205 PG/ML (0-125)
--- NOTE | 2019-09-26 17:35 | NUR ---
Pt updated with plan of care. Negative COVID swab. Await admission
[2019-09-26 17:37] LABS: BAND % (MANUAL) 1 % (0.0-5.0); LYMPHOCYTES % (MANUAL) 18 % (16-48); MONOCYTES % (MANUAL) 4 % (0-11.0); NEUTROPHILS % (MANUAL) 52 (42-76)
[2019-09-26 17:38] LABS: EOSINOPHILS % (MANUAL) 25 % (0-4)
--- NOTE | 2019-09-26 17:58 | NUR ---
RONALD AZUL CALLED, NO BED YET
[2019-09-26] MEDS ORDERED: IPRATROPIUM NEB FS 0.5 MG/2.5 ML AMPUL.NEB NEB SCH (18:00)
[2019-09-26] MEDS ORDERED: HYDROCODONE/APAP 5/325MG 1 EACH TABLET PO PRN (18:00)
[2019-09-26] MEDS ORDERED: ALBUTEROL FS 2.5 MG/0.5 ML VIAL.NEB NEB SCH (18:00)
[2019-09-26] MEDS ORDERED: ONDANSETRON HCL/PF 4 MG/2 ML VIAL IVP PRN ×2 (18:00→18:45)
[2019-09-26] MEDS ORDERED: ACETAMINOPHEN 325 MG TABLET PO PRN ×2 (18:00→18:45)
[2019-09-26] MEDS ORDERED: ALBUTEROL FS 2.5 MG/0.5 ML VIAL.NEB NEB ONE ×2 (18:00→20:41)
[2019-09-26] MEDS ORDERED: Z GUARD REMEDY 2 OZ OINT TP PRN ×2 (18:00→18:45)
--- NOTE | 2019-09-26 18:28 | NUR ---
NURSING SUP GAVE [phone].
--- NOTE | 2019-09-26 18:37 | NUR ---
Nurse Knowledge Exchage with AMY Stanley. Comfort/safety measures continued upon transfer. Pt made aware of Plan. NO acute changes/distress
[2019-09-26 19:50] VITALS: BP 112/73
--- NOTE | 2019-09-26 19:55 | NUR ---
RN NOTES ADMITTED PATIENT TRANSPORTED VIA GURNEY FROM ER. ALERT ORIENTED X4. NO SIGNS OF ACUTE CARDIAC AND OR RESPIRATORY DISTRESS NOTED. INITIAL ASSESSMENT AND ADMISSION PROCESS INITIATED. SAFETY MEASURES IN PLACE, ASPIRATION PRECAUTION EMPHASIZED, CALL LIGHT WITHIN EASY REACH. BED IN LOW LOCKED POSITION. KEEP CLEAN WARM DRY ND COMFORTABLE. IV ACCESS INTACT AND PATENT. ALL NEEDS ANTICIPATED. WILL CONTINUE TO MONITOR ACCORDINGLY.
[2019-09-26 20:00] VITALS: BP 117/72
[2019-09-27] VITALS: BP 138/83
[2019-09-27] MEDS: ALBUTEROL FS 2.5 MG/0.5 ML VIAL.NEB NEB SCH ×4 (01:19→19:43)
[2019-09-27] MEDS: IPRATROPIUM NEB FS 0.5 MG/2.5 ML AMPUL.NEB NEB SCH ×4 (01:19→19:42)
[2019-09-27 04:00] VITALS: BP 137/89
--- NOTE | 2019-09-27 06:36 | NUR ---
RN NOTES ALL NEEDS ATTENDED AND MET ABLE TO REST AND SLEPT AT INTERVALS, DENIES ANY PAIN AT THIS TIME, EASILY AROUSABLE. KEEP CLEAN WARM DRY AND COMFORTABLE. CALL LIGHT WITH IN EASY REACH, SAFETY MEASURES IN PLACE. WILL ENDORSE TO AM NURSE FOR CONTINUITY OF CARE.
--- NOTE | 2019-09-27 08:00 | NUR ---
CORRECTIONAL SUPERVISOR LIEUTENANT OPENING NOTES RECEIVED PT IN BED. AWAKE, ALERT AND ORIENTED X.. NO SIGNS OF ACUTE CARDIAC AND OR RESPIRATORY DISTRESS NO SOBNTED. SATURATING WELL ON ROOM AIR. IV ACCESS NOTED ON R FOREARM G20. INTACT AND PATENT AND FLUSHING WELL. NO S/S OF INFECTION AND INFILTRATION NOTED. SAFETY PRECAUTIONS IN PLACE. BED LOCKED AND IN LOW POSITION. CALL LIGHT WITHIN EASY REACH. BED IN LOW LOCKED POSITION. SIDE RAILS UP X2. BED ALARM ON. WILL CONTINUE TO MONITOR ACCORDINGLY.
[2019-09-27] MEDS: methylPREDNISolone SOD SUCC 40 MG/ML VIAL IV SCH ×2 (08:14→16:26)
[2019-09-27] MEDS ORDERED: methylPREDNISolone SOD SUCC 40 MG/ML VIAL IV SCH (09:00)
[2019-09-27] MEDS ORDERED: ATOR40TA PO (10:39)
[2019-09-27] MEDS ORDERED: ASPI-1152 PO (10:39)
[2019-09-27] MEDS ORDERED: DOCU100C36 PO (10:39)
[2019-09-27] MEDS ORDERED: DULO60CA45 PO (10:39)
[2019-09-27] MEDS ORDERED: LEVO88TA5 PO (10:39)
[2019-09-27] MEDS: APIXABAN 5 MG TABLET PO SCH ×2 (10:52→16:27)
--- NOTE | 2019-09-27 16:23 | NUR ---
SW NOTE: Per pt's RN, no wounds noted.
--- NOTE | 2019-09-27 18:32 | NUR ---
FOUNDER AND PRESIDENT CLOSING NOTES PT IN BED. AWAKE, ALERT AND ORIENTED X4. PLEASANT NAD COOPERATIVE.. NO SIGNS OF ACUTE CARDIAC AND OR RESPIRATORY DISTRESS NO SOB NOTED. SATURATING WELL ON ROOM AIR. IV ACCESS NOTED ON R FOREARM G20. INTACT AND PATENT AND FLUSHING WELL. NO S/S OF INFECTION AND INFILTRATION NOTED. SAFETY PRECAUTIONS IN PLACE. BED LOCKED AND IN LOW POSITION. CALL LIGHT WITHIN EASY REACH. BED IN LOW LOCKED POSITION. SIDE RAILS UP X2. BED ALARM ON. WILL CONTINUE TO MONITOR ACCORDINGLY.
[2019-09-27 20:00] VITALS: BP 110/75
--- NOTE | 2019-09-27 20:00 | NUR ---
MEDICAID BILLING SPECIALIST OPENING NOTE: Received patient in bed, awake and alert and oriented x 4. Patient shows no signs of distress. O2 Sat 99% on room air. Tolerating room air well. No SOB. Breathing unlabored and equal. Noted IV access on right forearm; 20 gauge. Flushing well; patent. No redness or infiltration. Safety precaution in place; bed is locked, side rails x2 are up, bed alarm is on, and call light is within reach. Will continue plan of care.
[2019-09-27] MEDS: HYDROCODONE/APAP 5/325MG 1 EACH TABLET PO PRN (20:22)
--- NOTE | 2019-09-27 20:22 | NUR ---
RN NOTES: Patient complains of lower extremity pain. Patient rates pain 7 on a 0-10 numerical scale and describes pain as sharp throbbing and burning. Administered PRN [place] per order. Will follow up for effectiveness.
--- NOTE | 2019-09-27 21:22 | NUR ---
RN NOTES: Reassess pain. Patient in bed sleeping comfortably. Patient shows no signs of pain or discomfort.
[2019-09-28] VITALS: BP 129/81
[2019-09-28] MEDS: IPRATROPIUM NEB FS 0.5 MG/2.5 ML AMPUL.NEB NEB SCH ×4 (01:39→19:39)
[2019-09-28] MEDS: ALBUTEROL FS 2.5 MG/0.5 ML VIAL.NEB NEB SCH ×4 (01:39→19:39)
[2019-09-28 04:00] VITALS: BP 119/81
--- NOTE | 2019-09-28 07:00 | NUR ---
OR ASSISTANT CLOSING NOTE: Patient in bed awake and alert. Patient shows no signs of distress. No SOB. Breathing unlabored and equal. Safety precaution in place; bed is locked, side rails x2 are up, bed alarm is on, and call light is within reach. Will endorse to next shift.
--- NOTE | 2019-09-28 07:30 | NUR ---
RN NOTES A/O x 4 patient in bed resting calm and cooperative with no signs of distress in room air. IV R FA #20G intact and patent. Safety measures are applied bed is lock in low position side rails up x 2 for safety. Will continue to monitor.
[2019-09-28 08:00] VITALS: BP 130/87
[2019-09-28] MEDS: methylPREDNISolone SOD SUCC 40 MG/ML VIAL IV SCH ×2 (08:35→17:03)
[2019-09-28] MEDS: APIXABAN 5 MG TABLET PO SCH ×2 (08:35→17:02)
[2019-09-28 09:28] LABS: BASOPHILS % (AUTO) 0.4 % (0.0-2.0); EOSINOPHILS % (AUTO) 0.1 % (0.0-6.0); HEMATOCRIT 27 % (33-45); LYMPHOCYTES # (AUTO) 1.3 /CMM (0.8-4.8); MEAN CORPUSCULAR HGB CONC 30 g/dl (31.0-36.0); MEAN CORPUSCULAR VOLUME 76 fL (82-100); MONOCYTES # (AUTO) 0.6 /CMM (0.1-1.30); MONOCYTES % (AUTO) 7.4 % (2.0-12.0); NEUTROPHILS # (AUTO) 6.1 /CMM (1.8-8.9); NEUTROPHILS % (AUTO) 76.1 % (43.0-81.0); PLATELET COUNT (AUTO) 454 /CMM (150-450)
[2019-09-28 09:58] LABS: ALBUMIN 3.8 g/dL (3.4-5.0); BILIRUBIN,TOTAL 0.2 mg/dL (0.2-1.0); CALCIUM, SERUM 9.6 mg/dL (8.5-10.1); CREATININE 1.2 mg/dL (0.6-1.3); PHOSPHORUS 4.1 mg/dL (2.5-4.9); POTASSIUM 3.8 mmol/L (3.5-5.1); TOTAL PROTEIN, SERUM 7.3 g/dL (6.4-8.2)
[2019-09-28] MEDS: IV 1/2NS 1000 ML 1,000 ML IV PRN (11:41)
[2019-09-28] MEDS ORDERED: CT SWABBABLE VALVE TRANS SET 1 EA INFUS.SET MC ONE (13:43)
[2019-09-28] MEDS ORDERED: IOHEXOL-350 100 ML VIAL IV ONE (13:43)
[2019-09-28] MEDS ORDERED: IV NS 0.9% 250 ML IV ONE (13:43)
[2019-09-28 16:00] VITALS: BP 149/102
--- NOTE | 2019-09-28 19:26 | NUR ---
RN NOTES A/O x 4 patient in bed resting calm and cooperative with no signs of distress in room air. IV R FA #20G intact and patent. Scheduled medications were given and tolerated well with no complications. Safety measures are applied bed is lock in low position side rails up x 2 for safety. Will endorse to the next nurse.
[2019-09-28 20:00] VITALS: BP 133/91
--- NOTE | 2019-09-28 20:00 | NUR ---
RN NOTES PATIENT ALERT AND ORIENTED X4, STABLE ON ROOM AIR, DIMINISHED LUNG SOUNDS, RECEIVING BREATHING TREATMENT, DENIES PAIN AT THIS TIME, S/P CT ANGIOGRAM, PENDING RESULTS, NO SCD DUE TO POSITIVE DVT TO MIO LEGS.
[2019-09-28] MEDS: HYDROCODONE/APAP 5/325MG 1 EACH TABLET PO PRN (21:59)
[2019-09-29] MEDS: ALBUTEROL FS 2.5 MG/0.5 ML VIAL.NEB NEB SCH ×2 (02:14→07:26)
[2019-09-29] MEDS: IPRATROPIUM NEB FS 0.5 MG/2.5 ML AMPUL.NEB NEB SCH ×2 (02:14→07:26)
[2019-09-29] MEDS: IV 1/2NS 1000 ML 1,000 ML IV PRN (04:17)
--- NOTE | 2019-09-29 06:17 | NUR ---
RN NOTES PM SHIFT ALERT AND ORIENTED X4, STABLE ON ROOM AIR, GIVEN NORCO X1 WITH ADEQUATE RELIEF, 1/2NS AT 60 ML/HR, AMBULATES INDEPENDENTLY, NO BM, CT ANGIOGRAM, NEGATIVE PE, CONTINUE IV STEROIDS, NEBULIZER TREATMENT, NO SCD, WITH ACTIVE DVT TO LEGS, ELIQUIS FOR VTE
--- NOTE | 2019-09-29 07:30 | NUR ---
RN Opening note Received patient in bed, AO x 4, able to responds all stimuli. Denied pain or distress, skin is warm to touch clean/dry, intact IV site running 1/2 NS at 60 ml/hr. Respiratory even and unlabored in room air, no distress observed. Keep bed in locked with elevated HOB for secure airway and aspiration precaution. Call light within reach, will continue to monitor.
[2019-09-29 08:00] VITALS: BP 137/88
[2019-09-29] MEDS: methylPREDNISolone SOD SUCC 40 MG/ML VIAL IV SCH (08:11)
[2019-09-29] MEDS: APIXABAN 5 MG TABLET PO SCH (08:13)
--- NOTE | 2019-09-29 10:30 | NUR ---
Given discharge instruction include new medications and side effect and follow up MD and patient verbally understanding. Patient denies pain or respiratory distress, in stable condition and vital sign.
== END 2019-09-29 12:26 | disposition home or self-care (01) | DRG 140 ==
LOC: ER 14:33 → TELE 19:34 → MED 09-28 08:37
PROVIDERS: ADMIT Internal Medicine; ATTEND Internal Medicine
DX: J44.1 Chronic obstructive pulmonary disease with (acute) exacerbation (principal); I25.10 Atherosclerotic heart disease of native coronary artery without angina pectoris; Z95.1 Presence of aortocoronary bypass graft; J96.01 Acute respiratory failure with hypoxia; M48.00 Spinal stenosis, site unspecified; G62.9 Polyneuropathy, unspecified; D50.9 Iron deficiency anemia, unspecified; I10 Essential (primary) hypertension; I27.20 Pulmonary hypertension, unspecified; Z79.01 Long term (current) use of anticoagulants; Z86.718 Personal history of other venous thrombosis and embolism; Z87.891 Personal history of nicotine dependence; K40.90 Unilateral inguinal hernia, without obstruction or gangrene, not specified as recurrent; Z98.890 Other specified postprocedural states; M54.30 Sciatica, unspecified side; J90 Pleural effusion, not elsewhere classified
CPT/HCPCS: 36415; 71045-TC; 80048-TC; 80053-TC; 80076-TC; 82728-TC; 83540-TC; 83735-TC; 83880; 84100-TC; 84484-TC; 85025-TC; 85730-TC; 87081-TC; 93307-TC; 93970-TC; 94799-TC; 97116-TC; 97530-TC; G0378; J2920; J2930; J3490; J7050; Q9967

== ENCOUNTER 2019-11-09 15:27 | Inpatient (IN) | payer OTHER ==
[~2019-11-09] VITALS: Ht 162.6 cm; Wt 67.6 kg
[~2019-11-09 15:27] MED LIST changes: +ASPI-1420 PO; +ATOR40TA PO; +DOCU100C36 PO; +DULO60CA45 PO; +LEVO88TA5 PO
--- NOTE | 2019-11-09 15:56 | NUR ---
pt rec'd to er c/o dizzness and wakness on lisin opril bp low . iv left ac 20g infusing ns
[2019-11-09] MEDS ORDERED: IV NS 0.9% 1,000 ML IV ONE (16:00)
[2019-11-09 16:23] LABS: BASOPHILS % (AUTO) 0.9 % (0.0-2.0); EOSINOPHILS % (AUTO) 5.7 % (0.0-6.0); LYMPHOCYTES # (AUTO) 0.8 /CMM (0.8-4.8); LYMPHOCYTES % (AUTO) 16.1 % (20.0-44.0); MEAN CORPUSCULAR HGB CONC 29 g/dl (31.0-36.0); MEAN CORPUSCULAR VOLUME 72 fL (82-100); MONOCYTES # (AUTO) 0.6 /CMM (0.1-1.30); MONOCYTES % (AUTO) 12.9 % (2.0-12.0); NEUTROPHILS # (AUTO) 3.2 /CMM (1.8-8.9); NEUTROPHILS % (AUTO) 64.4 % (43.0-81.0); PLATELET COUNT (AUTO) 293 /CMM (150-450); RED BLOOD CELL COUNT(AUTO) 2.74 MIL/uL (4.0-5.2); WHITE BLOOD COUNT (AUTO) 4.9 K/uL (4.3-11.0)
[2019-11-09 16:24] LABS: HEMATOCRIT 20 % (33-45); HEMOGLOBIN 5.7 g/dL (11.5-14.8)
--- NOTE | 2019-11-09 16:25 | NUR ---
hgb 5.7 hct 20
[2019-11-09 16:32] LABS: CALCIUM, SERUM 8.1 mg/dL (8.5-10.1); CARBON DIOXIDE 23 mmol/L (21-32); CHLORIDE 110 mmol/L (98-107); CREATININE 1.3 mg/dL (0.6-1.3); GLUCOSE 102 mg/dL (74-106); POTASSIUM 4.3 mmol/L (3.5-5.1); SODIUM SERUM 142 mmol/L (136-145); UREA NITROGEN, BLOOD 24 mg/dL (7-18)
[2019-11-09 16:37] LABS: ALANINE AMINOTRANSFERASE 15 U/L (12-78); ALBUMIN 3.1 g/dL (3.4-5.0); ALKALINE PHOSPHATASE 100 U/L (46-116); ASPARTATE AMINOTRANSFERASE 13 U/L (15-37); BILIRUBIN,DIRECT 0.1 mg/dL (0.0-0.2); BILIRUBIN,TOTAL 0.2 mg/dL (0.2-1.0); TOTAL PROTEIN, SERUM 6.3 g/dL (6.4-8.2)
--- NOTE | 2019-11-09 16:43 | NUR ---
pt told by to be admitted for transfusion blood . called yasmin
[2019-11-09 16:52] LABS: BAND % (MANUAL) 4 % (0.0-5.0); EOSINOPHILS % (MANUAL) 3 % (0-4); LYMPHOCYTES % (MANUAL) 18 % (16-48); MONOCYTES % (MANUAL) 10 % (0-11.0); NEUTROPHILS % (MANUAL) 65 (42-76)
--- NOTE | 2019-11-09 16:54 | NUR ---
MOVE SHEET SUBMITTED AND CALLED FOR TELE BED.
--- NOTE | 2019-11-09 18:18 | NUR ---
pt on monitors . staarted trasfusion o pos med [id number] volume 279 exp 11/29/19 pt ttolerating well so far . cont to monitor
--- NOTE | 2019-11-09 19:49 | NUR ---
BLOOD TRANSFUSION COMPLETED. NO REACTION NOTED. PATIENT IS NOT IN PAIN.
[2019-11-09 20:00] VITALS: BP 126/83
--- NOTE | 2019-11-09 20:41 | NUR ---
285 ML OF LRBC O (POSITIVE) BLOOD RUNNING AT THE RATE OF 120ML FOR FIRST 15MINUTES. WILL CONTINUE TO MONITOR FOR REACTION TO TRANSFUSION.
--- NOTE | 2019-11-09 20:46 | NUR ---
PATIENT AMBULATED TO THE RESTROOM WITH A STEADY GAIT.
--- NOTE | 2019-11-09 20:47 | NUR ---
TELE 315-2
--- NOTE | 2019-11-09 20:55 | NUR ---
REPORT GIVEN TO JHONY REYES FOR GEOFFREY.
--- NOTE | 2019-11-09 21:37 | NUR ---
PATIENT TAKEN TO ASSIGNED ROOM. 304-1 (NEW ROOM ASSIGNMENT)
[2019-11-09 21:57] VITALS: BP 126/83
[2019-11-09] MEDS ORDERED: ONDANSETRON HCL/PF 4 MG/2 ML VIAL IVP PRN (22:00)
[2019-11-09] MEDS ORDERED: ACETAMINOPHEN 325 MG TABLET PO PRN (22:00)
[2019-11-09] MEDS ORDERED: HYDROCODONE/APAP 5/325MG TABLET PO PRN (22:00)
[2019-11-09] MEDS ORDERED: ZOLPIDEM TARTRATE 5 MG TABLET PO PRN (22:00)
[2019-11-09] MEDS ORDERED: Z GUARD REMEDY 2 OZ OINT TP PRN (22:00)
[2019-11-09] MEDS ORDERED: MAGNESIUM HYDROXIDE 30 ML UDC PO PRN (22:00)
[2019-11-09] MEDS ORDERED: MAG HYDROX/AL HYDROX/SIMETH 30 ML UDC PO PRN (22:00)
--- NOTE | 2019-11-09 23:00 | NUR ---
RN NOTES ADMITTED PATIENT FROM ED DUE TO NEAR SYNCOPE, DIZZINESS, HYPOTENSIVE, HGB 5.7, DX SEVERE ANEMIA, ALERT AND ORIENTED X4, STABLE ON ROOM AIR, LUNG SOUNDS ARE CLEAR, ABDOMEN SOFT AND NON TENDER, INGUINIAL HERNIA, SKIN INTACT WITH OLD SURGICAL SCARS, AMBULATES INDEPENDENTLY, LAST BM 11/09/19, LAC PERIPHERAL LINE, RECEIVED PRBC 2 UNITS, LAST BAG COMPLETED IN THE UNIT, NO ADVERSE SIDE EFFECTS, VS STABLE, VOIDING SPONTANEOUSLY VIA TOILET. WILL CONTINUE TO MONITOR.
[2019-11-10] VITALS (7 sets, daily range): BP systolic 108–125; BP diastolic 71–84
[2019-11-10] MEDS: IV D5/0.45 NACL 1,000 ML IV PRN (00:17)
[2019-11-10 05:20] LABS: BASOPHILS # (AUTO) 0.1 /CMM (0.0-0.2); BASOPHILS % (AUTO) 1.3 % (0.0-2.0); EOSINOPHILS % (AUTO) 10.8 % (0.0-6.0); HEMATOCRIT 27 % (33-45); HEMOGLOBIN 8.1 g/dL (11.5-14.8); LYMPHOCYTES # (AUTO) 1.2 /CMM (0.8-4.8); LYMPHOCYTES % (AUTO) 28.1 % (20.0-44.0); MEAN CORPUSCULAR HGB CONC 30 g/dl (31.0-36.0); MEAN CORPUSCULAR VOLUME 76 fL (82-100); MONOCYTES # (AUTO) 0.5 /CMM (0.1-1.30); MONOCYTES % (AUTO) 12.8 % (2.0-12.0); PLATELET COUNT (AUTO) 266 /CMM (150-450); RED BLOOD CELL COUNT(AUTO) 3.59 MIL/uL (4.0-5.2); WHITE BLOOD COUNT (AUTO) 4.2 K/uL (4.3-11.0)
[2019-11-10 05:31] LABS: CALCIUM, SERUM 8.2 mg/dL (8.5-10.1); CREATININE 1.4 mg/dL (0.6-1.3); MAGNESIUM 2.3 mg/dL (1.8-2.4); PHOSPHORUS 5.2 mg/dL (2.5-4.9); POTASSIUM 4.5 mmol/L (3.5-5.1)
[2019-11-10 05:42] LABS: THYROID STIMULATING HORMONE 1.443 uIU/mL (0.358-3.74)
[2019-11-10] MEDS ORDERED: SORBITOL SOLUTION 30 ML PO ONE (06:00)
--- NOTE | 2019-11-10 06:47 | NUR ---
RN NOTES ALERT AND ORIENTED X4, STABLE ON ROOM AIR, RECEIVED PRBC 2 UNITS, CBC IN AM, NPO AT THIS TIME, NEEDS STOOL SAMPLE FOR OB, AMBULATORY, PER PATIENT "FEELS A LOT BETTER AFTER TRANSFUSION." MONITOR H/H.
[2019-11-10] MEDS: PANTOPRAZOLE 40 MG VIAL IV SCH (09:36)
--- NOTE | 2019-11-10 11:45 | NUR ---
Per dr. Du patient may start on full liquid at launch time . GI consult is pending. Dr. Rooney notified .
--- NOTE | 2019-11-10 12:30 | NUR ---
Patient tolerated full liquid diet well. NO abd pain noted
--- NOTE | 2019-11-10 17:56 | NUR ---
Started patient on [employer]. Patient NPO after midnight . Colonoscopy /EGD with dr. Rooney scheduled for tomorrow after 1330 pm
[2019-11-10] MEDS ORDERED: PEG 3350/NA SULF,BICARB,CL/KCL 4,000 ML BOTTLE PO ONE (18:00)
--- NOTE | 2019-11-10 18:32 | NUR ---
Patient agreed with colonoscopy /EGD for tomorrow and sighed consents. Patient started preparation for colonoscopy.
--- NOTE | 2019-11-10 18:44 | NUR ---
Patient remains in stable condition, on room air saturation above 95%. Patient is ambulatory. All needs attended and safety precautions in place. Will endorse to next shift for GEOFFREY
--- NOTE | 2019-11-10 19:50 | NUR ---
SENIOR DIRECTOR INSIGHT OPENING NOTES RECEIVED PATIENT FROM MORNING SHIFT, ALERT AND ORIENTED X 4. VERBALLY RESPONSIVE, AMBULATORY AND ABLE TO FOLLOW DIRECTIONS. BREATHING REGULAR AND UNLABORED ON ROOM AIR. LEFT AC G20 IV LINE INTACT AND PATENT, FLUSHING WELL WITH NO BLEEDING OR S/S OF INFILTRATION NOTED. ON CARDIAC MONITORING WITH NSR AT 62bpm. DENIES SUICIDAL IDEATION OR PAIN/DISCOMFORT AT THIS TIME. ADVISED ON NOTHING BY MOUTH EXCEPT GOLYTELY FOR BOWEL PREP FOR GI PROCEDURES TOMORROW, VERBALIZED UNDERSTANDING. BED LOW AND LOCKED ON SEMI FOWLERS POSITION, CALL LIGHT IN REACH. WILL CONTINUE TO MONITOR.
--- NOTE | 2019-11-10 22:00 | NUR ---
PAVILION CUTTER NOTES COMPLAINED OF PAIN ON IV SITE. IV LINE REMOVED AND REINSERTED ON LEFT FOREARM G20, FLUSHING WELL WITH GOOD BLOOD BACKFLOW. WILL CONTINUE TO MONITOR.
[2019-11-11] VITALS: BP 120/72
[2019-11-11 04:00] VITALS: BP 131/85
[2019-11-11] MEDS ORDERED: SORBITOL SOLUTION 30 ML ONE (05:19)
[2019-11-11] MEDS: IV D5/0.45 NACL 1,000 ML IV PRN (05:56)
[2019-11-11] MEDS ORDERED: SORBITOL SOLUTION 30 ML PO ONE (06:00)
--- NOTE | 2019-11-11 06:00 | NUR ---
GAS APPLIANCE INSTALLER NOTES NOTIFIED ABOUT PATIENT NOT ABLE TO FINISH THE GOLYTELY FOR BOWEL PREP. INFORMED HIM THAT SHE ONLY TOOK HALF OF IT AND COMPLAINS OF NAUSEA ON DRINKING IT. AWAITING RESPONSE. WILL ENDORSE ACCORDINGLY.
[2019-11-11 06:22] LABS: BASOPHILS # (AUTO) 0.1 /CMM (0.0-0.2); BASOPHILS % (AUTO) 1.2 % (0.0-2.0); EOSINOPHILS % (AUTO) 13.7 % (0.0-6.0); HEMATOCRIT 28 % (33-45); HEMOGLOBIN 8.3 g/dL (11.5-14.8); LYMPHOCYTES # (AUTO) 1.1 /CMM (0.8-4.8); LYMPHOCYTES % (AUTO) 22.1 % (20.0-44.0); MEAN CORPUSCULAR HGB CONC 30 g/dl (31.0-36.0); MEAN CORPUSCULAR VOLUME 75 fL (82-100); MONOCYTES # (AUTO) 0.5 /CMM (0.1-1.30); MONOCYTES % (AUTO) 10.3 % (2.0-12.0); NEUTROPHILS # (AUTO) 2.7 /CMM (1.8-8.9); NEUTROPHILS % (AUTO) 52.7 % (43.0-81.0); PLATELET COUNT (AUTO) 260 /CMM (150-450); RED BLOOD CELL COUNT(AUTO) 3.73 MIL/uL (4.0-5.2); WHITE BLOOD COUNT (AUTO) 5.1 K/uL (4.3-11.0)
[2019-11-11 06:28] LABS: CALCIUM, SERUM 8.7 mg/dL (8.5-10.1); MAGNESIUM 2.2 mg/dL (1.8-2.4); PHOSPHORUS 4.4 mg/dL (2.5-4.9); POTASSIUM 4.8 mmol/L (3.5-5.1)
--- NOTE | 2019-11-11 06:35 | NUR ---
FORK OPERATOR CLOSING NOTES PATIENT IN BED, ALERT AND ORIENTED X 4. AFEBRILE WITH NO S/S OF DISTRESS OBSERVED. LEFT FOREARM G20 IV LINE PATENT AND INFUSING WELL. MAINTAINED ON CARDIAC MONITORING WITH NSR AND EPISODES OF BRADYCARDIA AT 57bpm. NO COMPLAINTS OF PAIN/DISCOMFORT REPORTED AT THIS TIME. MAINTAINED NPO EXCEPT MEDS. BED LOW AND LOCKED ON SEMI FOWLERS POSITION, CALL LIGHT IN REACH. WILL ENDORSE TO MORNING SHIFT FOR GEOFFREY.
--- NOTE | 2019-11-11 07:30 | NUR ---
TELE/RN NOTE THE PATIENT IS RECEIVED IN BED. THE PATIENT IS ALERT AND ORIENTED X4. ABLE TO MAKE NEEDS KNOWN VERBALLY. DENIES PAIN. IN ROOM AIR AND DENIES SOB. RESPIRATION REGULAR AND UNLABORED. NOTED THAT THE PATIENT FINISHED ONLY HALF OF THE GOLYTELY. LFA G 20 PATENT AND D5 1/2NS INFUSING AT 75ML/HR AND NO S/S INFILTRATION NOTED. BED LOW AND LOCKED. SIDE RAILS UP X3. CALL LIGHT WITHIN REACH. WILL CONTINUE TO MONITOR.
[2019-11-11 07:43] LABS: OCCULT BLOOD STOOL NEGATIVE (NEGATIVE)
[2019-11-11 08:00] VITALS: BP 142/94
[2019-11-11] MEDS: PANTOPRAZOLE 40 MG VIAL IV SCH (08:48)
--- NOTE | 2019-11-11 09:20 | NUR ---
TELE/RN NOTE. NOTED THAT THE PATIENT STILL HAS LOOSE BUT BROWN COLORED STOOL. LEFT MESSAGE TO DR KUHN. WAITING FOR CALL BACK.
--- NOTE | 2019-11-11 09:43 | NUR ---
TELE/RN NOTE THE PATIENT COMPLAINS OF FEELING NAUSEOUS. ZOFRAN 4 MG IV PUSH GIVEN PER ORDER. WILL CONTINUE TO MONITOR.
--- NOTE | 2019-11-11 09:52 | NUR ---
TELE/RN NOTE THE PATIENT VERBALIZED RELIEF FROM NAUSEA.
[2019-11-11] MEDS ORDERED: PANT40TA2 PO (10:39)
--- NOTE | 2019-11-11 11:20 | NUR ---
TELE/RN NOTE PATIENT REFUSES DVT PUMP SLEEVES TO BE ON DESPITE EXPLAINING RISKS AND BENEFITS MULTIPLE TIMES.
--- NOTE | 2019-11-11 14:55 | NUR ---
RN NOTE PER DR KUHN STARTED THE PATIENT ON FULL LIQUID DIET AND WILL ADVANCE TOLERATED PER DR KUHN.
[2019-11-11 16:00] VITALS: BP 139/90
--- NOTE | 2019-11-11 19:01 | NUR ---
RN NOTE THE PATIENT ALERT AND ORIENTED X4. DENIES PAIN. DENIES SOB. RESPIRATION REGULAR AND UNLABORED. PATIENT IN NO APPARENT DISTRESS. DISCHARGE EDUCATION PROVIDED AND THE PATIENT VERBALIZED UNDERSTANDING. THE PATIENT IN NO APPARENT DISTRESS. WILL ENDORSE TO APPAREL MERCHANDISER.
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
== END 2019-11-11 19:30 | disposition home or self-care (01) | DRG 663 ==
LOC: ER 15:30 → TELE 21:07 → MED 11-11 11:15
PROVIDERS: ADMIT Student in an Organized Health Care Education/Training Program
PROC: 30233P1 Transfusion of Nonautologous Frozen Red Cells into Peripheral Vein, Percutaneous Approach (ICD-10-PCS; principal; 2019-11-09)
PROC: 0DB68ZX Excision of Stomach, Via Natural or Artificial Opening Endoscopic, Diagnostic (ICD-10-PCS; 2019-11-11)
DX: D50.9 Iron deficiency anemia, unspecified (principal); E86.0 Dehydration; E44.1 Mild protein-calorie malnutrition; J44.9 Chronic obstructive pulmonary disease, unspecified; I25.10 Atherosclerotic heart disease of native coronary artery without angina pectoris; R55 Syncope and collapse; Z95.1 Presence of aortocoronary bypass graft; M48.00 Spinal stenosis, site unspecified; I27.20 Pulmonary hypertension, unspecified; G62.9 Polyneuropathy, unspecified; Z86.718 Personal history of other venous thrombosis and embolism; Z68.25 Body mass index [BMI] 25.0-25.9, adult; Z96.641 Presence of right artificial hip joint; R79.89 Other specified abnormal findings of blood chemistry; M79.7 Fibromyalgia; N76.0 Acute vaginitis; E03.9 Hypothyroidism, unspecified; K44.9 Diaphragmatic hernia without obstruction or gangrene; N18.9 Chronic kidney disease, unspecified; I12.9 Hypertensive chronic kidney disease with stage 1 through stage 4 chronic kidney disease, or unspecified chronic kidney disease; K21.0 Gastro-esophageal reflux disease with esophagitis; N17.9 Acute kidney failure, unspecified
CPT/HCPCS: 36415; 80048-TC; 80061-TC; 80076-TC; 82272-TC; 83735-TC; 84100-TC; 84443-TC; 84484-TC; 85025-TC; 86850-TC; 86921-TC; 87081-TC; 88305-TC; 88313-TC; 88342; C9113; C9803-CS; G0378; J2405; J3490; J7040; J7050; P9016-BL

== ENCOUNTER 2020-08-31 20:34 | Emergency (ER) | payer MEDICARE, OTHER ==
[~2020-08-31] VITALS: Ht 165.1 cm; Wt 70.3 kg
[~2020-08-31 20:34] MED LIST changes: -ASPI-1420 PO; -IBUP-1958 PO; +PANT40TA2 PO; -VOLTAREN 1%
[2020-08-31] MEDS ORDERED: MORPHINE SULFATE INJ 4 MG/ML DISP.SYRIN ONE (22:17)
[2020-08-31] MEDS ORDERED: CLINDAMYCIN 900 MG/6 ML VIAL ONE (22:17)
[2020-08-31] MEDS: MORPHINE SULFATE INJ 2 MG/ML DISP.SYRIN IM ONE (22:33)
[2020-08-31] MEDS: CLINDAMYCIN 900 MG/6 ML VIAL IM ONE (22:33)
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
[2020-08-31] MEDS ORDERED: SULF1TAB48 PO (22:52)
[2020-08-31] MEDS ORDERED: CLIN300C12 PO (22:52)
[2020-08-31 22:58] VITALS: BP 144/81
--- NOTE | 2020-08-31 22:58 | NUR ---
Patient discharged to home in stable condition. Written and verbal after care instructions given. Patient verbalizes understanding of instruction.
== END 2020-08-31 23:00 | disposition home or self-care (01) ==
LOC: ER 20:36
DX: T21.25XA Burn of second degree of buttock, initial encounter (principal); I10 Essential (primary) hypertension; D64.9 Anemia, unspecified; Z98.890 Other specified postprocedural states; Z79.899 Other long term (current) drug therapy; X19.XXXA Contact with other heat and hot substances, initial encounter; Y93.89 Activity, other specified; Y92.89 Other specified places as the place of occurrence of the external cause; Y99.8 Other external cause status
CPT/HCPCS: 16020; 96372 ×2; 99284; J2270; J3490

== ENCOUNTER 2020-09-19 06:29 | Emergency (ER) | payer MEDICARE, OTHER ==
[~2020-09-19] VITALS: Ht 165.1 cm; Wt 70.3 kg
[2020-09-19 06:29] VITALS: BP 128/72
[~2020-09-19 06:29] MED LIST changes: +CLIN300C12 PO; +SULF1TAB48 PO
--- NOTE | 2020-09-19 07:01 | NUR ---
Patient's wound is cleaned with normal saline using aseptic technique. Bandage applied over the wound.
--- NOTE | 2020-09-19 07:13 | NUR ---
Patient discharged to home in stable condition. Written and verbal after care instructions given. Patient verbalizes understanding of instruction.
== END 2020-09-19 07:14 | disposition home or self-care (01) ==
LOC: ER 06:56
DX: Z48.01 Encounter for change or removal of surgical wound dressing (principal); I10 Essential (primary) hypertension; D64.9 Anemia, unspecified; Z98.890 Other specified postprocedural states; Z79.899 Other long term (current) drug therapy

== ENCOUNTER 2023-08-18 08:51 | Emergency (ER) | payer MEDICARE, OTHER ==
[~2023-08-18] VITALS: Ht 162.6 cm; Wt 62.6 kg
[2023-08-18 09:17] VITALS: BP 129/81; TEMP 97.9; O2SAT 98
[2023-08-18] MEDS: BACI/NEOM/POLY B OINT PKT 1 UDPKT PACKET TP ONE (09:30)
[2023-08-18] MEDS: ACETAMINOPHEN 325 MG TABLET PO ONE (10:30)
[2023-08-18] MEDS ORDERED: ACETAMINOPHEN 325 MG TABLET ONE (10:32)
[2023-08-18] MEDS ORDERED: TDAP [DIPH/PERTUSSIS/TET] 0.5 ML VIAL IM ONE (10:32)
[2023-08-18] MEDS: TDAP [DIPH/PERTUSSIS/TET] 0.5 ML VIAL IM ONE (10:35)
[2023-08-18] MEDS ORDERED: IBUP-1955 PO (11:18)
== END 2023-08-18 11:30 | disposition home or self-care (01) ==
LOC: ER 09:10
DX: S81.811A Laceration without foreign body, right lower leg, initial encounter (principal); M25.552 Pain in left hip; M79.604 Pain in right leg; I10 Essential (primary) hypertension; M54.30 Sciatica, unspecified side; W01.0XXA Fall on same level from slipping, tripping and stumbling without subsequent striking against object, initial encounter; Y93.89 Activity, other specified; Y92.89 Other specified places as the place of occurrence of the external cause; Y99.8 Other external cause status
CPT/HCPCS: 99284; 90471; 90715; 73503; 73590; A6403; 73502

== ENCOUNTER 2024-04-21 10:21 | Emergency (ER) | payer MEDICARE, OTHER ==
[~2024-04-21] VITALS: Ht 165.1 cm; Wt 86.2 kg
[~2024-04-21 10:21] MED LIST changes: +IBUP-1955 PO
[2024-04-21 11:05] VITALS: TEMP 97.8
[2024-04-21 11:14] LABS: BASOPHILS % (AUTO) 0.6 % (0.0-2.0); EOSINOPHILS # (AUTO) 0.1 K/uL (0.0-0.7); EOSINOPHILS % (AUTO) 0.7 % (0.0-6.0); HEMATOCRIT 47 % (33-45); HEMOGLOBIN 16.2 g/dL (11.5-14.8); LYMPHOCYTES # (AUTO) 0.6 K/uL (0.8-4.8); LYMPHOCYTES % (AUTO) 8.6 % (20.0-44.0); MEAN CORPUSCULAR HEMOGLOBIN 31 PG (26.0-33.0); MEAN CORPUSCULAR HGB CONC 35 g/dl (31.0-36.0); MEAN CORPUSCULAR VOLUME 90 fL (82-100); MONOCYTES # (AUTO) 0.6 K/uL (0.1-1.30); MONOCYTES % (AUTO) 7.5 % (2.0-12.0); NEUTROPHILS # (AUTO) 6.2 K/uL (1.8-8.9); NEUTROPHILS % (AUTO) 82.6 % (43.0-81.0); PLATELET COUNT (AUTO) 300 K/uL (150-450); RED CELL DISTRIBUTION WIDTH 13.9 % (11.5-15.0); WHITE BLOOD COUNT (AUTO) 7.5 K/uL (4.3-11.0)
[2024-04-21] MEDS ORDERED: BENZONATATE 100 MG CAPSULE PO ONE (11:16)
[2024-04-21] MEDS: BENZONATATE 100 MG CAPSULE PO PRN (11:21)
[2024-04-21] MEDS: IV NS 0.9% 1,000 ML BAG IV ONE (11:21)
[2024-04-21 11:32] LABS: ALANINE AMINOTRANSFERASE 20 U/L (12-78); ALBUMIN 3.7 g/dL (3.4-5.0); ALKALINE PHOSPHATASE 128 U/L (46-116); ASPARTATE AMINOTRANSFERASE 16 U/L (15-37); BILIRUBIN,DIRECT 0.1 mg/dL (0.0-0.2); BILIRUBIN,TOTAL 0.3 mg/dL (0.2-1.0); CALCIUM, SERUM 9.4 mg/dL (8.5-10.1); CARBON DIOXIDE 25 mmol/L (21-32); CHLORIDE 106 mmol/L (98-107); CREATININE 1.4 mg/dL (0.6-1.3); GLUCOSE 146 mg/dL (74-106); NT-PRO BNP 40 pg/mL (0-125); SODIUM SERUM 139 mmol/L (136-145); TOTAL PROTEIN, SERUM 7.7 g/dL (6.4-8.2); UREA NITROGEN, BLOOD 22 mg/dL (7-18)
[2024-04-21 13:59] VITALS: BP 115/85; O2SAT 97
== END 2024-04-21 13:50 | disposition home or self-care (01) ==
LOC: ER 10:21
DX: R53.1 Weakness (principal); R09.81 Nasal congestion; R05.9 Cough, unspecified; E11.9 Type 2 diabetes mellitus without complications; I10 Essential (primary) hypertension; I25.10 Atherosclerotic heart disease of native coronary artery without angina pectoris; Z79.890 Hormone replacement therapy; Z79.899 Other long term (current) drug therapy; Z20.822 Contact with and (suspected) exposure to COVID-19
CPT/HCPCS: 99285; 96360; 71045; 87426; 93005; 87804 ×2; 85025; 80048; 80076; 36415; 84484; 83880; 82962; J7030